=== PATIENT | female | born 1980 | race Two or more races ===

== ENCOUNTER 2025-01-27 22:33 | Emergency (ER) | payer OTHER ==
[~2025-01-27] VITALS: Ht 152.4 cm; Wt 68.9 kg
[~2025-01-27 22:33] MED LIST: DICLOFENAC POTA50 MG; LEVAQUIN500 MG; URETRON D/S TAB1 TAB
[2025-01-27] MEDS ORDERED: AMOX1TAB5 (23:17)
[2025-01-28] MEDS ORDERED: CEFTRIAXONE SODIUM 1,000 MG VIAL IM STA (05:37)
== END 2025-01-28 05:56 | disposition home or self-care (01) ==
LOC: ER 22:33
DX: J03.90 Acute tonsillitis, unspecified (principal); R21 Rash and other nonspecific skin eruption; Z88.1 Allergy status to other antibiotic agents